=== PATIENT | male | born 1970 | race Caucasian/White ===

== ENCOUNTER 2017-11-13 04:49 | Emergency (ER) | payer OTHER, SELFPAY ==
[2017-11-13 04:52] VITALS: BP 159/99; PULSE 88; RESP 18; TEMP 36.7; O2SAT 99; BMI 25.8
--- NOTE | 2017-11-13 05:14 | DI.CT.S_ITS ---
PROCEDURE: CT ANGIO HEAD AND NECK INDICATIONS: right neck pain with face pain TECHNIQUE: Pre-contrast 4.5 mm thick sections acquired from the foramen magnum to the vertex. After the administration of intravenous contrast, 1 mm thick sections acquired from the aortic arch through the [place]. Post-contrast 4.5 mm thick sections then re-acquired from the foramen magnum to the vertex. 3-dimensional jqeagai-onozbrfme-xuhnaiutgo (MIP) and/or volume rendering reformats were acquired of the central intracranial vasculature and neck separately. COMPARISON: None. FINDINGS: Image quality: Excellent. BRAIN: CSF spaces: Ventricles are normal in size and shape. Basal cisterns are patent. No extra-axial fluid collections. Brain: No midline shift. No intracranial bleeds or masses. Pimentel-white matter interface appears intact. Skull and face: Calvarium and facial bones appear intact, without suspicious lesions. Orbits appear normal. Sinuses: Mucosal thickening is noted involving the left maxillary sinus with probable mucous retention cyst evident. There may be also a mucous retention cyst involving the sphenoid air cells. No air-fluid levels are identified. The mastoid air cells are clear. HEAD CT ANGIOGRAPHY: Anterior circulation: Intracranial internal carotid arteries are normal in size and flow. The flow within the paired anterior cerebral arteries is normal and symmetric. The flow within the middle cerebral arteries is normal and symmetric. The anterior communicating artery is seen. No aneurysms are seen. Posterior circulation: Visualized portions of the vertebral arteries demonstrate normal caliber, and join to form a normal appearing basilar artery. Flow within the posterior cerebral arteries is normal and symmetric. No aneurysms are seen. NECK CT ANGIOGRAPHY: Carotid system: The great vessels demonstrate a conventional anatomy as they arise from the aortic arch. The origins of the common carotid arteries appear patent. The common carotid arteries demonstrate normal caliber and courses. The bifurcation regions are both widely patent. The internal carotid arteries demonstrate normal calibers and courses. Posterior circulation: The origins of the vertebral arteries both appear widely patent. The more superior extracranial portions of both vertebral arteries also demonstrate normal courses and calibers. They join to form a normal appearing basilar artery. Soft tissues: Visualized neck soft tissues demonstrate no suspicious abnormalities. Bones: No suspicious bony lesions. Visualized cervical spine appears normally aligned. IMPRESSION: 1. No acute intracranial hemorrhage. 2. No parenchymal lesions or abnormal parenchymal enhancement of the brain. 3. Normal CT angiography of the brain. No aneurysms, occlusions, or vascular malformations. 4. Unremarkable CT angiography of the neck. No areas of occlusion, high-grade narrowing, dissection, or vascular malformation. 5. Chronic sinus disease. Note: The preliminary report provided by [facility] is concordant with the final report. Any quantitative measurements of stenosis were performed using NASCET criteria. Dictated by: Artur Castillo M.D. on 11/13/2017 at 8:56 Approved by: Artur Castillo M.D. on 11/13/2017 at 9:01
--- NOTE | 2017-11-13 05:25 | ED.HA ---
HPI - Headache General Chief Complaint: Headache Stated Complaint: bad carotid pain in neck Time Seen by Provider: 11/13/17 05:06 Source: patient Mode of arrival: ambulatory Limitations: no limitations History of Present Illness HPI Narrative: Patient is a 47-year-old male who presents with right-sided ?carotid? Pain. He says that it starts in his neck and radiates up into his face and by his eye. He has no visual disturbances, no halos no decreased vision. He denies any injury no weakness. He feels like his hearing is altered but he denies any tinnitus or decreased hearing. He has not had any fevers. His throat hurts but does not feel like a regular sore throat. He did days numbness or tingling in extremities. He has been taking Excedrin migraine multiple times a day which helps take the edge off. However tonight he woke at about 4:00 a.m. with still very intense pain he came in for evaluation. MD Complaint: headache Onset (ago): day(s) Location: right Related Data Home Medications Medication Instructions Recorded Confirmed [id number] 11/13/17 [Excedrin Migraine] Previous Rx's Medication Instructions Recorded meloxicam [Mobic] 7.5 mg PO DAILY PRN #14 tab 11/13/17 Allergies Allergy/AdvReac Type Severity Reaction Status Date / Time No Known Drug Allergies Allergy Verified 11/13/17 05:03 Review of Systems Review of Systems All systems reviewed & are unremarkable except as noted in HPI and below Constitutional Denies chills, Denies fever(s), Reports headache(s), Denies lethargy and Denies weakness Eyes Denies change in vision, Denies loss of vision, Denies seeing flashes, Denies photophobia and Denies spots in vision ENT Ears, Nose, Mouth, and Throat: Reports as per HPI, Denies vertigo, Denies dizziness, Denies ear discharge, Reports headache(s), Reports hearing loss, Denies lip swelling, Reports neck pain, Denies tinnitus, Denies throat swelling and Denies tongue swelling Cardiovascular Denies chest pain, Denies syncope, Denies irregular heart rhythm, Denies lightheadedness, Denies palpitations, Denies dyspnea, Denies dyspnea on exertion and Denies orthopnea Respiratory Denies cough, Denies dyspnea, Denies dyspnea on exertion and Denies wheezing Gastrointestinal Gastrointestinal: Denies abdominal pain, Denies change in bowel habits, Denies diarrhea, Denies nausea and Denies vomiting Musculoskeletal Reports neck pain Integumentary/Breasts Denies pruritus, Denies erythema, Denies rash and Denies wounds Neurologic Denies vertigo, Denies dizziness, Denies syncope, Reports headache(s), Denies loss of vision, Denies other visual disturbances and Denies weakness Endocrine Denies palpitations Allergic/Immunologic Denies lip swelling, Denies throat swelling, Denies tongue swelling and Denies wheezing PFSH Medical History Patient denies medical problems (Acute) Vasectomy status (Acute) Surgical History H/O vasectomy (Acute) Social History Smoking Status: Never smoker alcohol intake: never substance use type: does not use Exam Initial Vital Signs Initial Vital Signs: Vital Signs Temperature 98.1 F 11/13/17 04:52 Pulse Rate 88 11/13/17 04:52 Respiratory Rate 18 11/13/17 04:52 Blood Pressure 159/99 H 11/13/17 04:52 Pulse Oximetry 99 11/13/17 04:52 Const General: cooperative, well developed and acute distress (holding right side of neck appears in pain) Nutritional Appearance: well nourished Orientation: alert, awake, oriented x3 and not confused [facility] Head: normal to inspection, normocephalic, atraumatic and No other (Tenderness over the temporal artery) Ears: hearing grossly normal bilaterally and external ear abnormal Face and sinus: normal facial exam Throat: posterior oropharynx normal and tonsils normal Eyes General: appearance normal, both eyes and all related structures Eyelids: eyelids normal Conjunctivae: conjunctivae normal Pupils: PERRL EOM: EOM intact bilaterally Neck Neck: No full ROM (Good flexion and extension however turning his head toward the left causes extreme pain on the right side), no meningeal signs and trachea midline Carotids: bounding pulses Resp Effort & Inspection: normal respiratory effort Auscultation: clear to auscultation bilaterally Cardio Rate: regular rate Rhythm: regular rhythm Heart Sounds: no click, no gallops, no murmurs and no rubs Pulses: normal peripheral pulses GI Inspection: non-distended Palpation: soft, no hepatosplenomegaly, No guarding, No pulsatile mass and No tender Auscultation: normal bowel sounds Skin General: no rashes or lesions noted, No jaundice and No petechiae Neuro General: alert, oriented x3, gait normal and no focal motor deficits Cranial Nerves: CN's II-XI intact bilaterally Cognition: normal cognition Speech: speech normal Motor: muscle tone normal throughout Course Orders Ordered: ED Orders 11/13/17 05:14 CT angio head and neck Stat 11/13/17 05:20 C-Reactive Protein Quant Stat Complete Blood Count AUTO DIFF Stat Comprehensive Metabolic Panel Stat Erythrocyte Sedimentation Rate Stat Partial Thromboplastin Time Stat Prothrombin Time INR Stat Discontinued Medications Ketorolac Tromethamine (Toradol) 30 mg IV NOW ONE Stop: 11/13/17 05:15 Last Admin: 11/13/17 05:27 Dose: 30 mg Vital Signs - 8 hr 11/13/17 04:52 11/13/17 05:38 11/13/17 06:38 Temperature 98.1 F 98.1 F Pulse Rate 88 88 68 Respiratory Rate 18 18 16 Blood Pressure 159/99 H 159/99 H Blood Pressure [Right Arm] 132/82 H Pulse Oximetry 99 99 99 MDM - Headache Lab Data Attestation: I reviewed the patient's lab results. Result diagrams: 11/13/17 05:20 11/13/17 05:20 Lab Results 11/13/17 11/13/17 11/13/17 Range/Units 05:20 05:20 05:20 WBC 6.5 (4.5-11.0) X10^3/uL RBC 5.06 (4.5-5.9) X10^6/uL Hgb 15.3 (13.5-17.5) g/dL Hct 42.8 (41-53) % MCV 84.6 (80-100) fL MCH 30.2 (26-34) PG MCHC 35.7 (30-36) % RDW 12.7 (11.6-14.8) % Plt Count 242 (150-400) X10^3/uL Neut % (Auto) 48.9 L (50-75) % Lymph % (Auto) 39.6 (25-40) % [place] % (Auto) 9.3 (3-14) % Eos % (Auto) 1.7 L (2-4) % Baso % (Auto) 0.5 (0-2) % Neut # (Auto) 3200 (1452-4259) /uL ESR 3 (0-15) MM/HR PT 10.4 (10.1-12.7) SECONDS INR 1.0 (0.9-1.3) APTT 33 (26.4-36.2) SECONDS Sodium 144 (137-145) mmol/L Potassium 4.1 (3.4-5.1) mmol/L Chloride 106 (98-107) mmol/L Carbon Dioxide 26 (22-32) mmol/L BUN 15 (9-20) mg/dL Creatinine 0.90 (0.66-1.25) mg/dL Estimated GFR > 60.0 (>60) mL/min BUN/Creatinine Ratio 16.7 (6-22) Glucose 96 (70-100) mg/dL Calcium 9.1 (8.4-10.2) mg/dL Total Bilirubin 0.7 (0.2-1.3) mg/dL AST 23 (17-59) IU/L ALT 26 (21-72) IU/L Alkaline Phosphatase 63 (38-126) U/L C-Reactive Protein < 0.5 (<1.0) mg/dL Total Protein 7.3 (6.3-8.2) g/dL Albumin 4.5 (3.5-5.0) g/dL Globulin 2.8 (1.7-4.1) g/dL Albumin/Globulin Ratio 1.6 (1.0-2.8) Imaging Data CTA head and neck: 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 CT angiogram of neck no suspicious vascular finding MDM Narrative Medical decision making narrative: CTA of head and neck negative. ESR and CRP are also negative unlikely to be temporal arteritis. He is much improved with Toradol. Possible cluster or tension headaches. No neurologic deficits. Do not suspect meningitis Discharge Plan Departure Patient Disposition: Home, Self-Care Clinical Impression: Headache Instructions: Tension Headache, Cluster Headache Activity Restrictions/Additional Instructions: *You have been diagnosed with headache *What to do: Blood work and CT of head and neck are negative. *Continue to take medications as directed -Mobic once a day if needed for pain, do not combine with other NSAIDS *Follow up with your primary care provider in 2-3 days *Return to ER if you should have increasing pain, weakness, visual loss [or] any new, worsening or concerning symptoms Prescriptions: New meloxicam [Mobic] 7.5 mg tablet 7.5 mg PO DAILY PRN (Reason: pain) Qty: 14 RF: 0 No Action [id number] [Excedrin Migraine] 250-250-65 mg Tablet RF: 0
[2017-11-13] MEDS: KETOROLAC 60 MG/2 ML VIAL 30 MG IV (05:27)
[2017-11-13 05:38] VITALS: BP 159/99; PULSE 88; RESP 18; TEMP 36.7; O2SAT 99; BMI 25.8
[2017-11-13 05:39] LABS: Add Manual Diff / Slide Review NO; Basophils Percent Auto 0.5 % (0-2); Eosinophils Percent Auto 1.7 % (2-4); Hematocrit 42.8 % (41-53); Hemoglobin 15.3 g/dL (13.5-17.5); Lymphocytes Percent Auto 39.6 % (25-40); Mean Corpuscular HGB Conc 35.7 % (30-36); Mean Corpuscular Hemoglobin 30.2 PG (26-34); Mean Corpuscular Volume 84.6 fL (80-100); Monocytes Percent Auto 9.3 % (3-14); Neutrophils Absolute Auto 3200 /uL (3000-5900); Neutrophils Percent Auto 48.9 % (50-75); Platelet Count 242 X10^3/uL (150-400); Red Blood Cell Count 5.06 X10^6/uL (4.5-5.9); Red Cell Distribution Width 12.7 % (11.6-14.8); White Blood Cell Count 6.5 X10^3/uL (4.5-11.0)
[2017-11-13 05:42] LABS: Prothrombin Time 10.4 SECONDS (10.1-12.7)
[2017-11-13 05:45] LABS: PTT Partial Thromboplastin Tim 33 SECONDS (26.4-36.2)
[2017-11-13 05:46] LABS: Alanine Aminotransferase 26 IU/L (21-72); Albumin 4.5 g/dL (3.5-5.0); Albumin Globulin Ratio 1.6 (1.0-2.8); Alkaline Phosphatase 63 U/L (38-126); Aspartate Aminotransferase 23 IU/L (17-59); BUN Creatinine Ratio 16.7 (6-22); Bilirubin Total 0.7 mg/dL (0.2-1.3); Blood Urea Nitrogen 15 mg/dL (9-20); Calcium 9.1 mg/dL (8.4-10.2); Carbon Dioxide 26 mmol/L (22-32); Chloride 106 mmol/L (98-107); Estimated Glomerular Filt Rate > 60.0 mL/min (>60); Globulin 2.8 g/dL (1.7-4.1); Glucose 96 mg/dL (70-100); HEMOLYSIS < 15 (0-50); Potassium 4.1 mmol/L (3.4-5.1); Sodium 144 mmol/L (137-145); Total Protein 7.3 g/dL (6.3-8.2)
--- NOTE | 2017-11-13 05:50 | ED_ITS ---
HPI - Headache General Chief Complaint: Headache Stated Complaint: bad carotid pain in neck Time Seen by Provider: 11/13/17 05:06 Source: patient Mode of arrival: ambulatory Limitations: no limitations History of Present Illness HPI Narrative: Patient is a 47-year-old male who presents with right-sided ? carotid? Pain. He says that it starts in his neck and radiates up into his face and by his eye. He has no visual disturbances, no halos no decreased vision. He denies any injury no weakness. He feels like his hearing is altered but he denies any tinnitus or decreased hearing. He has not had any fevers. His throat hurts but does not feel like a regular sore throat. He did days numbness or tingling in extremities. He has been taking Excedrin migraine multiple times a day which helps take the edge off. However tonight he woke at about 4:00 a.m. with still very intense pain he came in for evaluation. MD Complaint: headache Onset (ago): day(s) Location: right Related Data Home Medications Medication Instructions Recorded Confirmed [id number] 11/13/17 [Excedrin Migraine] Previous Rx's Medication Instructions Recorded meloxicam [Mobic] 7.5 mg PO DAILY PRN #14 tab 11/13/17 Allergies Allergy/AdvReac Type Severity Reaction Status Date / Time No Known Drug Allergies Allergy Verified 11/13/17 05:03 Review of Systems Review of Systems All systems reviewed & are unremarkable except as noted in HPI and below Constitutional Denies chills, Denies fever(s), Reports headache(s), Denies lethargy and Denies weakness Eyes Denies change in vision, Denies loss of vision, Denies seeing flashes, Denies photophobia and Denies spots in vision ENT Ears, Nose, Mouth, and Throat: Reports as per HPI, Denies vertigo, Denies dizziness, Denies ear discharge, Reports headache(s), Reports hearing loss, Denies lip swelling, Reports neck pain, Denies tinnitus, Denies throat swelling and Denies tongue swelling Cardiovascular Denies chest pain, Denies syncope, Denies irregular heart rhythm, Denies lightheadedness, Denies palpitations, Denies dyspnea, Denies dyspnea on exertion and Denies orthopnea Respiratory Denies cough, Denies dyspnea, Denies dyspnea on exertion and Denies wheezing Gastrointestinal Gastrointestinal: Denies abdominal pain, Denies change in bowel habits, Denies diarrhea, Denies nausea and Denies vomiting Musculoskeletal Reports neck pain Integumentary/Breasts Denies pruritus, Denies erythema, Denies rash and Denies wounds Neurologic Denies vertigo, Denies dizziness, Denies syncope, Reports headache(s), Denies loss of vision, Denies other visual disturbances and Denies weakness Endocrine Denies palpitations Allergic/Immunologic Denies lip swelling, Denies throat swelling, Denies tongue swelling and Denies wheezing PFSH Medical History Patient denies medical problems (Acute) Vasectomy status (Acute) Surgical History H/O vasectomy (Acute) Social History Smoking Status: Never smoker alcohol intake: never substance use type: does not use Exam Initial Vital Signs Initial Vital Signs: Vital Signs Temperature 98.1 F 11/13/17 04:52 Pulse Rate 88 11/13/17 04:52 Respiratory Rate 18 11/13/17 04:52 Blood Pressure 159/99 H 11/13/17 04:52 Pulse Oximetry 99 11/13/17 04:52 Const General: cooperative, well developed and acute distress (holding right side of neck appears in pain) Nutritional Appearance: well nourished Orientation: alert, awake, oriented x3 and not confused [facility] Head: normal to inspection, normocephalic, atraumatic and No other (Tenderness over the temporal artery) Ears: hearing grossly normal bilaterally and external ear abnormal Face and sinus: normal facial exam Throat: posterior oropharynx normal and tonsils normal Eyes General: appearance normal, both eyes and all related structures Eyelids: eyelids normal Conjunctivae: conjunctivae normal Pupils: PERRL EOM: EOM intact bilaterally Neck Neck: No full ROM (Good flexion and extension however turning his head toward the left causes extreme pain on the right side), no meningeal signs and trachea midline Carotids: bounding pulses Resp Effort & Inspection: normal respiratory effort Auscultation: clear to auscultation bilaterally Cardio Rate: regular rate Rhythm: regular rhythm Heart Sounds: no click, no gallops, no murmurs and no rubs Pulses: normal peripheral pulses GI Inspection: non-distended Palpation: soft, no hepatosplenomegaly, No guarding, No pulsatile mass and No tender Auscultation: normal bowel sounds Skin General: no rashes or lesions noted, No jaundice and No petechiae Neuro General: alert, oriented x3, gait normal and no focal motor deficits Cranial Nerves: CN's II-XI intact bilaterally Cognition: normal cognition Speech: speech normal Motor: muscle tone normal throughout Course Orders Ordered: ED Orders 11/13/17 05:14 CT angio head and neck Stat 11/13/17 05:20 C-Reactive Protein Quant Stat Complete Blood Count AUTO DIFF Stat Comprehensive Metabolic Panel Stat Erythrocyte Sedimentation Rate Stat Partial Thromboplastin Time Stat Prothrombin Time INR Stat Discontinued Medications Ketorolac Tromethamine (Toradol) 30 mg IV NOW ONE Stop: 11/13/17 05:15 Last Admin: 11/13/17 05:27 Dose: 30 mg Vital Signs - 8 hr 11/13/17 04:52 11/13/17 05:38 11/13/17 06:38 Temperature 98.1 F 98.1 F Pulse Rate 88 88 68 Respiratory Rate 18 18 16 Blood Pressure 159/99 H 159/99 H Blood Pressure [Right Arm] 132/82 H Pulse Oximetry 99 99 99 MDM - Headache Lab Data Attestation: I reviewed the patient's lab results. Result diagrams: 11/13/17 05:20 11/13/17 05:20 Lab Results 11/13/17 11/13/17 11/13/17 Range/Units 05:20 05:20 05:20 WBC 6.5 (4.5-11.0) X10^3/uL RBC 5.06 (4.5-5.9) X10^6/uL Hgb 15.3 (13.5-17.5) g/dL Hct 42.8 (41-53) % MCV 84.6 (80-100) fL MCH 30.2 (26-34) PG MCHC 35.7 (30-36) % RDW 12.7 (11.6-14.8) % Plt Count 242 (150-400) X10^3/uL Neut % (Auto) 48.9 L (50-75) % Lymph % (Auto) 39.6 (25-40) % [place] % (Auto) 9.3 (3-14) % Eos % (Auto) 1.7 L (2-4) % Baso % (Auto) 0.5 (0-2) % Neut # (Auto) 3200 (6305-9587) /uL ESR 3 (0-15) MM/HR PT 10.4 (10.1-12.7) SECONDS INR 1.0 (0.9-1.3) APTT 33 (26.4-36.2) SECONDS Sodium 144 (137-145) mmol/L Potassium 4.1 (3.4-5.1) mmol/L Chloride 106 (98-107) mmol/L Carbon Dioxide 26 (22-32) mmol/L BUN 15 (9-20) mg/dL Creatinine 0.90 (0.66-1.25) mg/dL Estimated GFR > 60.0 (>60) mL/min BUN/Creatinine Ratio 16.7 (6-22) Glucose 96 (70-100) mg/dL Calcium 9.1 (8.4-10.2) mg/dL Total Bilirubin 0.7 (0.2-1.3) mg/dL AST 23 (17-59) IU/L ALT 26 (21-72) IU/L Alkaline Phosphatase 63 (38-126) U/L C-Reactive Protein < 0.5 (<1.0) mg/dL Total Protein 7.3 (6.3-8.2) g/dL Albumin 4.5 (3.5-5.0) g/dL Globulin 2.8 (1.7-4.1) g/dL Albumin/Globulin Ratio 1.6 (1.0-2.8) Imaging Data CTA head and neck: 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 CT angiogram of neck no suspicious vascular finding MDM Narrative Medical decision making narrative: CTA of head and neck negative. ESR and CRP are also negative unlikely to be temporal arteritis. He is much improved with Toradol. Possible cluster or tension headaches. No neurologic deficits. Do not suspect meningitis Discharge Plan Departure Patient Disposition: Home, Self-Care Clinical Impression: Headache Instructions: Tension Headache, Cluster Headache Activity Restrictions/Additional Instructions: *You have been diagnosed with headache *What to do: Blood work and CT of head and neck are negative. *Continue to take medications as directed -Mobic once a day if needed for pain, do not combine with other NSAIDS *Follow up with your primary care provider in 2-3 days *Return to ER if you should have increasing pain, weakness, visual loss [or] any new, worsening or concerning symptoms Prescriptions: New meloxicam [Mobic] 7.5 mg tablet 7.5 mg PO DAILY PRN (Reason: pain) Qty: 14 RF: 0 No Action [id number] [Excedrin Migraine] 250-250-65 mg Tablet RF: 0
[2017-11-13 06:03] LABS: C-Reactive Protein Quant < 0.5 mg/dL (<1.0)
[2017-11-13 06:05] LABS: Erythrocyte Sedimentation Rate 3 MM/HR (0-15)
[2017-11-13 06:38] VITALS: BP 132/82; PULSE 68; RESP 16; O2SAT 99
[2017-11-13 07:28] VITALS: BP 134/80; PULSE 59; RESP 18; O2SAT 96
== END 2017-11-13 07:29 | disposition home or self-care (01) ==
PROVIDERS: Emergency Provider Emergency Medicine; PCP Family Medicine
DX: R51 Headache (principal)
CPT/HCPCS: 70496; 70498; 80053; 85025; 85610; 85651; 85730; 86140; 96374; 99283; 99284; J1885; Q9967